=== PATIENT | female | born 1990 | race African-American/Black ===

== ENCOUNTER 2016-08-09 12:26 | Emergency (ER) | payer OTHER ==
[~2016-08-09] VITALS: Ht 157.5 cm; Wt 105.2 kg
[2016-08-09] MEDS ORDERED: PROMETHAZINE-C120 ML PO (13:01)
[2016-08-09 13:08] VITALS: BP 157/100
== END 2016-08-09 13:10 | disposition home or self-care (01) ==
LOC: ER 12:26
DX: J02.8 Acute pharyngitis due to other specified organisms (principal); J06.9 Acute upper respiratory infection, unspecified; F17.210 Nicotine dependence, cigarettes, uncomplicated